=== PATIENT | male | born 1965 ===

== ENCOUNTER 2018-02-02 21:02 | Emergency (ER) | payer MEDICAID, OTHER ==
[2018-02-02] MEDS ORDERED: Sodium Chloride 0.9% 1,000 ML IV ONE (21:31)
--- NOTE | 2018-02-02 21:33 | C.PDOC ---
History Of Present Illness 52 year old male presents to the ED c/o sharp like chest pain that started yesterday. Patient states his pain worsens with palpation of the area and movements. Patient denies fever, chills, injury, fall, trauma, SOB, palpitations, weakness, numbness, headache. Chief Complaint (Nursing): Chest Pain History Per: Patient History/Exam Limitations: no limitations Onset/Duration Of Symptoms: Days Current Symptoms Are (Timing): Still Present Quality: "Pain" Exacerbating Factors: Movement Recent travel outside of the [place]: No Additional History Per: Patient Past Medical History Reviewed: Historical Data, Nursing Documentation, Vital Signs Vital Signs: Last Vital Signs Temp 98.6 F 02/02/18 21:11 Pulse 92 H 02/02/18 21:11 Resp 18 02/02/18 21:11 BP 133/87 02/02/18 21:11 Pulse Ox 98 02/02/18 21:11 - Medical History PMH: HTN Surgical History: No Surg Hx Family History: States: Unknown Family Hx - Social History Hx Alcohol Use: Yes Hx Substance Use: No - Immunization History Hx Tetanus Toxoid Vaccination: No Hx Influenza Vaccination: No Hx Pneumococcal Vaccination: No Review Of Systems Constitutional: Negative for: Fever, Chills Cardiovascular: Positive for: Chest Pain. Negative for: Palpitations Respiratory: Negative for: Cough, Shortness of Breath Gastrointestinal: Negative for: Nausea, Vomiting, Abdominal Pain Skin: Negative for: Rash Neurological: Negative for: Weakness, Numbness Physical Exam - Physical Exam Appears: Non-toxic, No Acute Distress Skin: Normal Color, Warm, Dry Head: Atraumatic, Normacephalic Eye(s): bilateral: Normal Inspection Neck: Normal ROM, Supple Chest: Symmetrical, Tenderness (left lateral chest wall area) Cardiovascular: Rhythm Regular Respiratory: Normal Breath Sounds, No Rales, No Rhonchi, No Wheezing Gastrointestinal/Abdominal: Soft, No Tenderness, No Guarding, No Rebound Extremity: Normal ROM, No Tenderness, No Swelling Neurological/Psych: Oriented x3, Normal Speech, Normal Cognition Gait: Steady ED Course And Treatment - Laboratory Results Result Diagrams: 02/02/18 21:34 02/02/18 21:34 ECG: Interpreted By Me, Viewed By Me ECG Rhythm: Sinus Rhythm ECG Interpretation: Normal, No Acute Changes Interpretation Of ECG: NSR, normal tracings. Rate From EC O2 Sat by Pulse Oximetry: 98 (ON RA) Pulse Ox Interpretation: Normal - Radiology CXR: Interpreted by Me, Viewed By Me CXR Interpretation: Yes: No Acute Disease, Other (normal chest film). No: Infiltrates Nexus Criteria: Negative - CT Scan/US CT chest Other Rad Studies (CT/US): Read By Radiologist, Radiology Report Reviewed CT/US Interpretation: CT of the chest without contrast. Clinical statement: chest pain. Technique: Multiple axial CT images were obtained with 5 mm cuts through the chest without administration of contrast. Comparison: None. Findings: There is no thoracic lymphadenopathy. The visualized portions of the thyroid gland is unremarkable. There are no pericardial or pleural effusions. The lungs are clear. Limited imaging of the upper abdomen does not demonstrate any acute abnormalities. There are no suspicious osseous lesions. Impression: Unremarkable CT examination of the chest. . Electronically signed on Feb 03, 2018 1:50:28 AM EDT by: Stephy Caraballo M.D., Certified by ABR, MSK, Neuroradiology. Medical Decision Making Medical Decision Making: Plan: * EKG * Labs * CXR * Toradol 30 mg IVP * IV fluids On reexamination patient has tenderness over his left lateral chest wall area above the nipple, CT of the chest was ordered Disposition Counseled Patient/Family Regarding: Diagnosis - Disposition Referrals: [facility] [Outside] Disposition: HOME/ ROUTINE Disposition Time: 22:16 Condition: STABLE Prescriptions: traMADol/Acetaminophen [Ultracet 325 MG-37.5 MG] 1 tab PO Q4 #14 tab Instructions: Costochondritis Forms: [facility] (Hungarian) - POA Present On Arrival: None - Clinical Impression Clinical Impression: Acute chest wall pain - Scribe Statement The provider has reviewed the documentation as recorded by the Scribe Tho Hernandez All medical record entries made by the Scribe were at my direction and personally dictated by me. I have reviewed the chart and agree that the record accurately reflects my personal performance of the history, physical exam, medical decision making, and the department course for this patient. I have also personally directed, reviewed, and agree with the discharge instructions and disposition.
[2018-02-02 21:43] LABS: BASO # 0.1 K/uL (0.0-0.2); BASO % 1.3 % (0.0-2.0); EOS # 0.1 K/uL (0.0-0.7); EOS % 1.8 % (0.0-4.0); HEMOGLOBIN 14.4 g/dL (12.0-18.0); LYMPH # 2.4 K/uL (1.0-4.3); LYMPH % 47.4 % (20.0-40.0); MEAN CELL VOLUME 93.7 fL (80.0-94.0); MEAN CORPUSCULAR HGB CONC 34.2 g/dL (33.0-37.0); MEAN PLATELET VOLUME 8.1 fL (7.2-11.7); MONO # 0.4 K/uL (0.0-0.8); MONO % 8.4 % (0.0-10.0); NEUT % 41.1 % (50.0-75.0); NRBC % 0.1 % (0.0-2.0); RBC 4.51 Mil/uL (4.40-5.90)
[2018-02-02 21:57] LABS: ALB/GLOB RATIO 1.3 (1.0-2.1); ALBUMIN 4.1 g/dL (3.5-5.0); ALT/SGPT 16 U/L (21-72); AST/SGOT 24 U/L (17-59); BLOOD UREA NITROGEN 10 mg/dL (9-20); CALCIUM 8.7 mg/dl (8.6-10.4); GFR NON-AFRICAN AMERICAN > 60
[2018-02-02] MEDS ORDERED: Naproxen 550 mg Tab PO STA (22:18)
[2018-02-02] MEDS ORDERED: Naproxen 550 mg Tab PO ONE (22:34)
[2018-02-03 00:03] VITALS: RESP 20
[2018-02-03 02:26] VITALS: BP 135/70; PULSE 85; TEMP 97.1
[2018-02-03 02:38] VITALS: O2SAT 98
--- NOTE | 2018-02-03 08:46 | RAD ---
HISTORY: Chest pain COMPARISON: No prior. TECHNIQUE: Chest PA and lateral FINDINGS: LINES AND TUBES: None. LUNG AND PLEURA: The lungs are well inflated and clear. No pleural effusion or pneumothorax. HEART AND MEDIASTINUM: The heart is not enlarged. The hilar and mediastinal contours are within normal limits. SKELETAL STRUCTURES: The bony structures are within normal limits for the patient's age. VISUALIZED UPPER ABDOMEN: Normal. OTHER FINDINGS: None. IMPRESSION: No active pulmonary disease.
--- NOTE | 2018-02-03 11:29 | CT ---
Date of service: 02/03/18 CT chest without IV contrast Indication: Left lateral chest pain Technique: Contiguous axial images were obtained through the chest without intravenous contrast enhancement. Sagittal and coronal reconstructions were generated and reviewed. This CT exam was performed using 1 or more of the following dose reduction techniques: Automated exposure control, adjustment of the MAA and/or kV according to patient size, and/or use of iterative reconstruction technique. Radiation dose (DLP): 429.80 MGy-cm. Comparison: Chest xray performed 02/02/18 Findings: Visualized portions of the inferior thyroid gland appear unremarkable. The unenhanced mediastinal and hilar vascular structures appear grossly unremarkable. The heart appears within normal limits of size. No focal consolidation. No pleural effusion. No pneumothorax. No suspicious pulmonary nodules measuring greater than 5 mm. Limited visualization of the noncontrast upper abdomen appears grossly unremarkable. Kyphosis. Mild multilevel degenerative changes. Impression: No acute pulmonary pathology identified. Preliminary impression was provided by [employer].
--- NOTE | 2018-02-03 18:34 | CARD ---
APPROVED REPORT Date of service: 02/02/2018 EKG Measurement Heart [id number] <Conclusion> Normal sinus rhythm Normal ECG
--- NOTE | 2018-02-05 08:43 | CARD ---
APPROVED REPORT Date of service: 02/03/2018 EKG Measurement Heart [id number] <Conclusion> Normal sinus rhythm Minimal voltage criteria for LVH, may be normal variant Borderline ECG
== END 2018-02-03 02:38 | disposition home or self-care (01) ==
LOC: C.ER 21:02
DX: R07.89 Other chest pain (principal); I10 Essential (primary) hypertension
CPT/HCPCS: 71046; 71250; 80053; 84484; 85025; 85378; 93005; 96361; 96374; 99284; J1885; J7030

== ENCOUNTER 2018-02-06 23:32 | Emergency (ER) | payer SELFPAY ==
[2018-02-06 23:44] VITALS: BP 172/90; PULSE 90; RESP 20; TEMP 99.2; O2SAT 98
[2018-02-07] MEDS ORDERED: Oxycodone/Acetaminophen 5/325 mg Tab PO STA (00:03)
[2018-02-07] MEDS ORDERED: Lidocaine 2% Jelly (30 ml) TOP ONE (00:03)
--- NOTE | 2018-02-07 00:07 | C.PDOC ---
History Of Present Illness Patient complains of pain to left side of chest for several days and rash that appeared 2 days ago and has spread to the back. Patient states he was seen in the ED few days ago and is taking pain medication without relief. Denies any fever, cough, SOB. Time Seen by Provider: 02/06/18 23:47 Chief Complaint (Nursing): Abnormal Skin Integrity History Per: Patient History/Exam Limitations: no limitations Onset/Duration Of Symptoms: Days Past Medical History Reviewed: Historical Data, Nursing Documentation, Vital Signs Vital Signs: Last Vital Signs Temp 99.2 F 02/06/18 23:41 Pulse 90 02/06/18 23:41 Resp 20 02/06/18 23:41 BP 172/90 H 02/06/18 23:41 Pulse Ox 98 02/06/18 23:41 - Medical History PMH: HTN Family History: States: Unknown Family Hx - Social History Hx Alcohol Use: Yes Hx Substance Use: No - Immunization History Hx Tetanus Toxoid Vaccination: No Hx Influenza Vaccination: No Hx Pneumococcal Vaccination: No Review Of Systems Except As Marked, All Systems Reviewed And Found Negative. Musculoskeletal: Positive for: Other (chest wall pain) Skin: Positive for: Rash Physical Exam - Physical Exam Appears: Non-toxic, No Acute Distress Skin: Warm, Dry Head: Atraumatic, Normacephalic Eye(s): bilateral: Normal Inspection, EOMI Oral Mucosa: Moist Neck: Normal ROM Chest: Symmetrical, Tenderness (left side chest wall), Other (bright erythematous base and herpetiform vesicluar rash to left chest wall around nipple and extends to left side and back, does not cross midline) Cardiovascular: Rhythm Regular, No Murmur Respiratory: Normal Breath Sounds, No Wheezing Extremity: Bilateral: Atraumatic, Normal ROM ED Course And Treatment O2 Sat by Pulse Oximetry: 98 Medical Decision Making Medical Decision Making: Impression:Zoster Plan: Percocet, Acyclovir, Lidocaine topical Disposition Counseled Patient/Family Regarding: Diagnosis, Need For Followup, Rx Given - Disposition Referrals: Manuela Fonseca MD [Medical Doctor] - Disposition: HOME/ ROUTINE Disposition Time: 00:11 Condition: STABLE Additional Instructions: You have Shingles Take antiviral medicine Take Motrin for pain as needed Take pain medicine as needed Percocet is narcotic pain medicine, can cause drowsiness. Take when pain is severe Apply topical cream to help with pain as needed Prescriptions: Acyclovir [Zovirax] 800 mg PO 5XD 7 Days #35 tab Lidocaine [Recticare] 30 gm TP BID #1 cream..g. oxyCODONE/Acetaminophen [Percocet 5/325 mg Tab] 1 tab PO Q8 PRN #15 tab PRN Reason: Pain, Severe (8-10) Instructions: Shingles (DC) - POA Present On Arrival: None - Clinical Impression Clinical Impression: Herpes zoster
[2018-02-07] MEDS ORDERED: Oxycodone/Acetaminophen 5/325 mg Tab ONE (00:11)
[2018-02-07] MEDS ORDERED: Lidocaine 5% Patch TD ONE ×3 (00:11→00:17)
== END 2018-02-07 00:23 | disposition home or self-care (01) ==
LOC: C.ER 23:32
DX: B02.9 Zoster without complications (principal)

== ENCOUNTER 2018-03-02 06:56 | Emergency (ER) | payer OTHER ==
[2018-03-02] MEDS ORDERED: Morphine 4 MG/ML VIAL IV STA ×3 (07:35→09:05)
[2018-03-02 07:56] LABS: BASO % 0.8 % (0.0-2.0); EOS # 0.1 K/uL (0.0-0.7); EOS % 1.8 % (0.0-4.0); HEMOGLOBIN 14.5 g/dL (12.0-18.0); LYMPH # 2.1 K/uL (1.0-4.3); LYMPH % 40.1 % (20.0-40.0); MEAN CELL VOLUME 94.5 fL (80.0-94.0); MEAN CORPUSCULAR HEMOGLOBIN 32.6 pg (27.0-31.0); MEAN CORPUSCULAR HGB CONC 34.5 g/dL (33.0-37.0); MEAN PLATELET VOLUME 7.8 fL (7.2-11.7); MONO # 0.3 K/uL (0.0-0.8); MONO % 5.9 % (0.0-10.0); NEUT # 2.7 K/uL (1.8-7.0); NEUT % 51.4 % (50.0-75.0); RBC 4.43 Mil/uL (4.40-5.90); RED CELL DISTRIBUTION WIDTH 13.4 % (11.5-14.5); WHITE BLOOD COUNT 5.2 K/uL (4.8-10.8)
[2018-03-02 08:20] LABS: ALB/GLOB RATIO 1.2 (1.0-2.1); ALBUMIN 4.2 g/dL (3.5-5.0); ALT/SGPT 26 U/L (21-72); AST/SGOT 29 U/L (17-59); BLOOD UREA NITROGEN 10 mg/dL (9-20); CALCIUM 8.8 mg/dl (8.6-10.4); GFR NON-AFRICAN AMERICAN > 60
[2018-03-02 08:35] LABS: B-TYPE NATRIURETIC PEPTIDE 59.1 pg/mL (0-900)
--- NOTE | 2018-03-02 09:03 | RAD ---
Date of service: 03/02/2018 HISTORY: SOB COMPARISON: Chest radiographs 02/02/2018. TECHNIQUE: Chest PA and lateral FINDINGS: LUNGS: No active pulmonary disease. PLEURA: No significant pleural effusion identified. No pneumothorax apparent. CARDIOVASCULAR: No aortic atherosclerotic calcification present. Normal cardiac size. No pulmonary vascular congestion. OSSEOUS STRUCTURES: No significant abnormalities. VISUALIZED UPPER ABDOMEN: Normal. OTHER FINDINGS: None. IMPRESSION: No interval acute cardiopulmonary disease appreciated.
--- NOTE | 2018-03-02 09:37 | C.PDOC ---
History Of Present Illness 52-year-old male, presents to the emergency department, diagnosed with shingles on 02/06/18, presents to the emergency department with complaints of ongoing chest pain since diagnosis with shingles, Patient denies shortness of breath and states pain is unrelieved with Motrin and Tylenol. Pain is described as tightness in rash area only. Patient denies any nausea/vomiting. he admits to a Hx of hypertension but states it has "resolved." and he does not take any medication. No other complaints at this time. NO fh of heart disease, does not smoke, no diabetes. Time Seen by Provider: 03/02/18 07:24 Chief Complaint (Nursing): Chest Pain History Per: Patient History/Exam Limitations: no limitations Past Medical History Reviewed: Historical Data, Nursing Documentation, Vital Signs Vital Signs: Last Vital Signs Temp 97.8 F 03/02/18 07:07 Pulse 84 03/02/18 09:07 Resp 20 03/02/18 09:07 BP 107/70 03/02/18 09:07 Pulse Ox 100 03/02/18 09:07 - Medical History PMH: HTN Family History: States: No Known Family Hx - Social History Hx Alcohol Use: Yes Hx Substance Use: No - Immunization History Hx Tetanus Toxoid Vaccination: No Hx Influenza Vaccination: No Hx Pneumococcal Vaccination: No Review Of Systems Constitutional: Negative for: Fever Cardiovascular: Positive for: Chest Pain Respiratory: Negative for: Shortness of Breath Gastrointestinal: Negative for: Vomiting Skin: Positive for: Rash Physical Exam - Physical Exam Appears: Non-toxic, No Acute Distress Skin: Warm, Dry, Rash (excoriated rash to throacic dermatome on left side, consistent with patients pain) Head: Atraumatic Eye(s): bilateral: Normal Inspection, PERRL, EOMI Nose: Normal Oral Mucosa: Moist Lips: Normal Appearing Neck: Normal ROM Cardiovascular: Rhythm Regular, No Murmur Respiratory: Normal Breath Sounds, No Accessory Muscle Use Back: Normal Inspection Extremity: Normal ROM, No Deformity Neurological/Psych: Oriented x3, Normal Speech ED Course And Treatment - Laboratory Results Result Diagrams: 03/02/18 07:50 03/02/18 07:50 ECG: Interpreted By Me, Viewed By Me ECG Rhythm: Sinus Rhythm ECG Interpretation: No Acute Changes Rate From EC O2 Sat by Pulse Oximetry: 100 Medical Decision Making Medical Decision Making: chest pain, herpatic neuralgia ce x 2, negative troponin heart score = 2 patient pain improved. Will discharged patient home to follow up with infectious disease within 2 days. Disposition Counseled Patient/Family Regarding: Studies Performed, Diagnosis, Need For Followup, Rx Given - Disposition Referrals: Case To MD [Staff Provider] - Deric Marrero MD [Staff Provider] - Disposition: HOME/ ROUTINE Disposition Time: 13:01 Condition: STABLE Additional Instructions: follow up with infectious disease within two days call to make an appointment take pain medication as prescribed return to ER if symptoms worsens or progress Prescriptions: Acetaminophen/Codeine [Tylenol/Codeine 300 MG/30 MG] 1 tab PO Q6H PRN #12 tab PRN Reason: Pain, Severe (8-10) RX: Gabapentin 300 mg PO DAILY PRN #20 capsule PRN Reason: Pain, Moderate (4-7) Instructions: Shingles (DC), Costochondritis (DC) Forms: [facility] (Korean), General Discharge Instructions - Clinical Impression Clinical Impression: Acute herpes zoster neuropathy, Chest wall pain - Scribe Statement The provider has reviewed the documentation as recorded by the Scribe (Jud Velázquez) Provider Attestation: All medical record entries made by the Scribe were at my direction and personally dictated by me. I have reviewed the chart and agree that the record accurately reflects my personal performance of the history, physical exam, medical decision making, and the department course for this patient. I have also personally directed, reviewed, and agree with the discharge instructions and disposition.
[2018-03-02] MEDS ORDERED: Oxycodone/Acetaminophen 5/325 mg Tab PO STA (10:48)
[2018-03-02] MEDS ORDERED: Oxycodone/Acetaminophen 5/325 mg Tab ONE (10:54)
[2018-03-02 13:40] VITALS: BP 128/80; PULSE 72; RESP 17; TEMP 98.1
[2018-03-02 17:12] VITALS: O2SAT 100
--- NOTE | 2018-03-03 21:47 | CARD ---
APPROVED REPORT Date of service: 03/02/2018 EKG Measurement Heart [id number] <Conclusion> Normal sinus rhythm Normal ECG
== END 2018-03-02 13:39 | disposition home or self-care (01) ==
LOC: C.ER 06:56
DX: B02.29 Other postherpetic nervous system involvement (principal); R07.89 Other chest pain
CPT/HCPCS: 71046; 80053; 82550; 83880; 84484; 85025; 93005; 96374; 96375; 96376; 99285; J1885; J2270

== ENCOUNTER 2018-07-11 19:46 | Emergency (ER) | payer OTHER ==
[2018-07-11 20:00] VITALS: BP 117/72; PULSE 80; RESP 14; TEMP 98.2; O2SAT 98
--- NOTE | 2018-07-11 20:55 | C.PDOC ---
History Of Present Illness Patient is a 53 year old male who presents to the ED c/o swelling and pain to the left facial area. Patient states that he has bad cavities on the lower and upper gum and thinks he brook his tooth by grinding down hard yesterday. Patient reports that he took Motrin earlier today. He denies any fever, headaches, or neck pain. Time Seen by Provider: 07/11/18 20:04 Chief Complaint (Nursing): Dental Pain History Per: Patient History/Exam Limitations: no limitations Current Symptoms Are (Timing): Still Present Quality: Positive for: "Pain" Recent travel outside of the [place]: No Additional History Per: Patient Past Medical History Reviewed: Historical Data, Nursing Documentation, Vital Signs Vital Signs: Last Vital Signs Temp 98.2 F 07/11/18 19:57 Pulse 80 07/11/18 19:57 Resp 14 07/11/18 19:57 BP 117/72 07/11/18 19:57 Pulse Ox 98 07/11/18 19:57 - Medical History PMH: HTN Surgical History: No Surg Hx Family History: States: Unknown Family Hx - Social History Hx Alcohol Use: Yes Hx Substance Use: No - Immunization History Hx Tetanus Toxoid Vaccination: No Hx Influenza Vaccination: No Hx Pneumococcal Vaccination: No Review Of Systems Constitutional: Negative for: Fever ENT: Positive for: Other (swelling and pain to left facial area) Musculoskeletal: Negative for: Neck Pain Neurological: Negative for: Headache Physical Exam - Physical Exam Appears: Non-toxic, No Acute Distress Skin: Normal Color, Warm, Dry Head: Atraumatic, Other (swelling to left mandibular area, no bony tenderness, left submandibular adenopathy) Tongue: No Swelling, Other (no elevation of tongue, no lesions) Gingiva: Erythema, No Swelling, Other (extensive cavities upper and lower gum) Neurological/Psych: Oriented x3 ED Course And Treatment O2 Sat by Pulse Oximetry: 98 (on RA) Pulse Ox Interpretation: Normal Progress Note: Plan: Cleocin 300mg PO. Motrin 800mg PO. Patient instructed to follow up in dental clinic. Understands all return instructions Disposition Counseled Patient/Family Regarding: Diagnosis, Need For Followup, Rx Given - Disposition Referrals: Manuela Fonseca MD [Medical Doctor] - Dental clinic, [facility] [Other] Disposition: HOME/ ROUTINE Disposition Time: 20:55 Condition: STABLE Additional Instructions: Take medications as directed Make dental appointment at [facility] - dental clinic Return to ER if worse Prescriptions: Clindamycin [Cleocin] 300 mg PO QID #28 cap Ibuprofen [Motrin Tab] 800 mg PO QID #30 tab Instructions: Tooth Abscess (DC) Forms: [employer] Connect (Martiniquais) - Clinical Impression Clinical Impression: Dental abscess - PA / [employer] / Resident Statement MD/DO has examined the patient and agrees with the treatment plan. - Scribe Statement The provider has reviewed the documentation as recorded by the Kobi Bruner All medical record entries made by the Kobi were at my direction and personally dictated by me. I have reviewed the chart and agree that the record accurately reflects my personal performance of the history, physical exam, medical decision making, and the department course for this patient. I have also personally directed, reviewed, and agree with the discharge instructions and disposition.
== END 2018-07-11 21:17 | disposition home or self-care (01) ==
LOC: C.ER 19:46
DX: L02.91 Cutaneous abscess, unspecified (principal)

== ENCOUNTER 2018-09-01 12:04 | Outpatient (CLI) | payer OTHER | END 2018-09-01 12:05 | disposition home or self-care (01) | LOC: C.LAB 12:04 | DX: B02.9 Zoster without complications (principal); R63.4 Abnormal weight loss; R73.03 Prediabetes ==